=== PATIENT | female | born 1975 | race Caucasian/White ===

== ENCOUNTER 2018-12-31 15:18 | Emergency (ER) | payer OTHER ==
[2018-12-31] MEDS ORDERED: LIDOCAINE 2%/EPI MPF (SDV) 20 ML VIAL INJ (17:32)
[2018-12-31] MEDS: ACETAMINOPHEN 325 MG TAB PO (17:54)
[2018-12-31] MEDS: DIPHTH/TET/ACEL PERTUSS (ADULT) 0.5 ML VIAL IM* (17:55)
== END 2018-12-31 18:38 | disposition home or self-care (01) ==
LOC: FTE 15:18
DX: S61.012A Laceration without foreign body of left thumb without damage to nail, initial encounter (principal); W26.0XXA Contact with knife, initial encounter; Y92.9 Unspecified place or not applicable; Z23 Encounter for immunization
CPT/HCPCS: 90471; 90715; 99283-25